=== PATIENT | male | born 1935 | race Caucasian/White ===

== ENCOUNTER 2017-04-26 13:08 | Inpatient (IN) | payer MEDICARE ==
[~2017-04-26] VITALS: Ht 179 cm; Wt 78.0 kg
--- NOTE | ~2017-04-26 | PR ---
[place], [place] PROGRESS NOTE NAME: LINO GUO UNIT #: [id number] ROOM: 315 DOCTOR: ASHLEY THAKUR MD BIRTHDATE: [birth year] DOS: 05/05/2017 CHIEF COMPLAINT: "Good morning, Sir." SUMMARY OF THE VISIT: The patient was interviewed as he reclined in a Susanna chair watching television and reading magazines. He engaged readily in conversation. He voiced no complaints. He was not attempting to leave the Susanna chair in any way. In fact, he looked content and comfortable. He voiced short simple responses, denying any issues and stated that he had breakfast, but could not remember what he had. MENTAL STATUS: He is alert and oriented to self. He is unclear if he realizes he is in the hospital, certainly not time. Mood does seem to be fairly euthymic. Affect appropriate. There is no gus or hypomania. There are no overt auditory or visual hallucinations. No delusions, no paranoia. Short term memory is exceedingly poor. PLAN: I will maintain his current psychotropic regimen. Maintain and monitor for the next 24 hours to make certain that the somnolence that was present 24 hours ago has truly dissipated which it does seem to have lessened considerably, returning then to [facility] when stable. ASHLEY THAKUR MD CM:PNTRANS [id number] ASHLEY THAKUR MD 05/05/17 1448 interface
--- NOTE | ~2017-04-26 | PR ---
[place], [place] PROGRESS NOTE NAME: LINO GUO UNIT #: [id number] ROOM: 315 DOCTOR: ASHLEY THAKUR MD BIRTHDATE: [birth year] DOS: 05/02/2017 INTERVAL NOTE. CHIEF COMPLAINT: "I am okay, thank you for asking." SUMMARY OF THE VISIT: The patient was interviewed as he sat in the dining area in a Susanna chair, finishing his breakfast. He engaged readily in conversation. Overall, his behavior has strongly trended towards euthymia and improvement. His episodes of yelling out and increased agitation have decreased in both frequency and intensity and the Susanna chair allowing him to utilize objects, puzzles and what not has been a very positive improvement allowing him to be calmer without the use of p.r.n. intervention. MENTAL STATUS: He is alert and oriented to person, not necessarily to place or time. Mood does seem to be strongly trending towards euthymia. Affect is much more appropriate. There are no symptoms of hypomania or gus. There are no overt auditory or visual hallucinations. No delusions, no paranoia. Short term memory has gaps. Otherwise, he is relatively intact. PLAN: I will maximize out the dose of Vraylar from 4.5 mg at bedtime to 6 mg at bedtime. Monitor for risk, benefit, engage in individual and hamilton milieu activity with the plan to return back to [facility] when psychiatrically stable. ASHLEY THAKUR MD CM:PNTRANS 6 ASHLEY THAKUR MD 05/02/1728 interface
--- NOTE | ~2017-04-26 | PR ---
[place], [place] PROGRESS NOTE NAME: LINO GUO UNIT #: [id number] ROOM: 315 DOCTOR: DHAVAL TREJO,MY BIRTHDATE: [birth year] DOS: 04/28/2017 CHIEF COMPLAINT: "Want to go to bathroom and I am going now." SUMMARY OF THE VISIT: The patient was interviewed in the dining area. Said "I want to go to bathroom now," but staff said he just returned from bathroom break. The patient complains of headache and said he has it since he got here. MENTAL STATUS: The patient is alert and oriented to self only. His responses tend to be short, simple and fragmented at times. Pleasantly confused and disoriented. There was no overt gus. There were no overt auditory or visual hallucinations, delusions, or paranoia. Short-term memory was extremely poor. PLAN: We will add Vraylar 1.5 mg at bedtime. Continue valproic acid, Depakote 500, Exelon and Namenda. We will continue to engage the patient in individual and hamilton milieu activity with the ultimate plan is to return back to [facility] when the patient is psychiatrically stable. SUKUMAR PUENTES DO ASHLEY THAKUR MD CM:PNTRANS [id number] SUKUMAR PUENTES DO 04/28/17 1311 interface
--- NOTE | ~2017-04-26 | PR ---
[place], [place] PROGRESS NOTE NAME: LINO GUO UNIT #: [id number] ROOM: 315 DOCTOR: ITALO SANDOVAL,MICHAEL BIRTHDATE: [birth year] DOS: 04/30/2017 CHIEF COMPLAINT: "I ate breakfast." SUBJECTIVE: The patient is an 82-year-old male admitted because of increasing agitation and significant mood lability. He was combative physically and verbally aggressive and he started on medicines and today, he is seen sitting in Susanna chair. He did engage in conversation, seemed pleasant, tried to have some eye contact, stating that he is feeling better. He could tell his address, his social security number and tried to answer questions. He is hard of hearing, but did try to engage. He has been calmer. As per nurse's report, he slept okay last night and had his breakfast. MENTAL STATUS EXAMINATION: The patient is oriented to self only. He is alert and did try to engage in conversation and did try to answer questions but at times his answers did not make much sense. He is calmer at present. No gus or hypomania noted. Also, no delusion or paranoia noted. PLAN: The patient is showing some improvement. We shall continue his medicines and increase Vraylar to 4.5 mg at bedtime and continue his care. Shall try and engage him in hamilton milieu as he is more stable. MICHAEL PUCKETT MD CM:PNTRANS [phone] MICHAEL PUCKETT MD 04/30/17 1544 interface
--- NOTE | ~2017-04-26 | PR ---
[place], [place] PROGRESS NOTE NAME: LINO GUO UNIT #: [id number] ROOM: 315 DOCTOR: ITALO SANDOVAL,MICHAEL BIRTHDATE: [birth year] DOS: CHIEF COMPLAINT: "Yes." SUBJECTIVE: The patient is seen this morning in dining area. He is sitting comfortably in Susanna chair, eyes closed. He did not engage in any meaningful conversation this morning. He was awake and alert yesterday afternoon and was very talkative. He has been needing help to feed him and on his personal care. He did not exhibit any aggressive behavior this morning. MENTAL STATUS EXAMINATION: The patient is drowsy, sleepy. He could not hold any conversation. He did open his eyes, looked at me and then dozed off. No gus or hypomania noted. PLAN: The patient needs further stabilization, so we shall continue with the same medicines and provide the personal care and shall try and engage him in hamilton milieu as he is more stable. MICHAEL PUCKETT MD CM:PNTRANS [phone] MICHAEL PUCKETT MD 05/08/171616 interface
--- NOTE | ~2017-04-26 | PR ---
[place], [place] PROGRESS NOTE NAME: LINO GUO UNIT #: [id number] ROOM: 315 DOCTOR: DHAVAL TREJO,MY BIRTHDATE: [birth year] DOS: 05/03/2017 ROOM #[id number] CHIEF COMPLAINT: "I've been here for 3 years." SUMMARY OF THE VISIT: The patient was interviewed in a Susanna chair in dining room area, having breakfast. Most of his answers today are "good or okay." Patient tends to look at the ground or away during the interview. According to staff, the patient only got 3 hours of sleep last night. MENTAL STATUS: Awake, alert and oriented to person. Affect is flat, but more appropriate, engaging in simple conversation appropriately, responses are short and simple, poor eye contact. No evidence of gus or hypomania noted. There are no overt evidence of delusion, paranoia or hallucination. PLAN: Continue Vraylar 6 mg at bedtime. We will continue to monitor for risks, benefits and engage the patient in individual and hamilton milieu activity with the ultimate plan is to return patient back to [facility] when the patient is psychiatrically stable. MY DO DHAVAL ASHLEY THAKUR MD CM:PNCHRIS [phone] SUKUMAR PUENTES DO 05/04/17 0853 interface
--- NOTE | ~2017-04-26 | PR ---
[place], [place] PROGRESS NOTE NAME: LINO GUO UNIT #: [id number] ROOM: 315 DOCTOR: ITALO SANDOVAL,MICHAEL BIRTHDATE: [birth year] DOS: CHIEF COMPLAINT: "I'm sleepy." SUBJECTIVE: The patient is seen this morning, sitting in a Susanna chair in dining area, resting after his breakfast, had short conversation, then he dozed off. Yesterday, he did engage in good conversation and did have a little play with a ball as well. He has been calmer. No more aggressive behavior noted. This has been appropriate. Yesterday, he had a visit from his son and he is happy about that. MENTAL STATUS EXAMINATION: The patient is sleepy, but is arousable, is sitting in Susanna chair. Did try to answer questions. At times, did not make any sense, still blunted affect. No gus or hypomania and no overt psychosis. PLAN: The patient is showing some improvement, but needs further stabilization, so we shall continue his care and shall continue his medicines and try and engage him in hamilton milieu as he is more stable. MICHAEL PUCKETT MD CM:NARENDRA [phone] MICHAEL PUCKETT MD 05/01/17 1338 interface
--- NOTE | ~2017-04-26 | WRIGHTHP ---
[place], [place] PATIENT HISTORY AND PHYSICAL EXAM [id number] UNIT #: [id number] ROOM: 315 DOCTOR: ASHLEY THAKUR MD BIRTHDATE: [birth year] DOS: 04/27/2017 CHIEF COMPLAINT: "I slept well, Thank you for asking." HISTORY OF PRESENT ILLNESS: This is an 82-year-old white male who is a resident of [facility] in [place], [place]. The patient was sent here to the [facility] in [facility] due to significant mood lability. The patient has been increasingly resistive to care and has been both verbally and physically combative. The patient also has been very restless and agitated and has been pacing nonstop. Attempts to redirect or to help him be more comfortable have been unsuccessful. The patient has struck out at other patients and staff and has been a significant risk of harm to himself and others due to this fact, he is admitted now to rule out further organic factors, to stabilize on medication, to engage in individual and hamilton milieu activity with the ultimate plan to return back to [facility]. PAST MEDICAL HISTORY: Remarkable for coronary artery disease, congestive heart failure, hyperlipidemia, hypertension, Parkinson's disease, diabetes, dementia. MENTAL STATUS: The patient is alert and oriented to self only. His responses tended to be short, simple and more often than not inappropriate. He denied any issues and was rather pleasant and cooperative with us. However, he was grossly confused and disoriented. His responses were also disjointed and fragmented and at times, he was not able to even form an entire sentence. There was no agitation or aggression. There was no overt hypomania or gus. There were no overt auditory or visual hallucinations. No delusions, no paranoia was noted. Short-term memory was exceedingly poor. DIAGNOSIS: Mood disorder, not otherwise specified, rule out major depression, recurrent, rule out intermittent explosive disorder. PLAN: I have maintained him on his Exelon and Namenda. His valproic acid level was found to be therapeutic at 76.8. I will maintain him on his Depakote 500 mg every 6 hours. We will continue to engage in individual and hamilton milieu activity with the ultimate plan to return back to [facility]. [place], [place] PATIENT HISTORY AND PHYSICAL EXAM NAME: LINO GUO UNIT #: [id number] ROOM: 315 DOCTOR: ASHLEY THAKUR MD BIRTHDATE: [birth year] ASHLEY THAKUR MD CM:HISPHYS:PATIENT HISTORY AND PHYSICAL EXAMINATION 9 5 ASHLEY THAKUR MD 04/27/17846 interface
--- NOTE | ~2017-04-26 | PR ---
[place], [place] PROGRESS NOTE NAME: LINO GUO UNIT #: [id number] ROOM: 315 DOCTOR: DHAVAL TREJO,MY BIRTHDATE: [birth year] DOS: 04/29/2017 CHIEF COMPLAINT: "I am ready." SUMMARY OF THE VISIT: The patient was interviewed in front of nurse station while he was in a Susanna chair. Denied pain or discomfort. The patient slept well and got 5 hours per staff. MENTAL STATUS: The patient is alert and oriented to self only. His responses are rather simple and short. Pleasantly confused and disoriented. There was no overt hypomania or gus. There were no overt auditory or visual hallucinations, delusions or paranoia. Short-term memory was extremely poor. PLAN: We will increase Vraylar from 1.5 mg to 3 mg at bedtime. Continue valproic acid (its level on April was 76.8) and Namenda. We will continue to engage the patient in individual and group activity. Plan is to be discharged back to [facility] when the patient is psychiatrically stable. MY DHAVAL, DO ASHLEY THAKUR MD CM:PNTRANS [phone] SUKUMAR PUENTES DO 04/29/17 1322 interface
--- NOTE | ~2017-04-26 | PR ---
[place], [place] PROGRESS NOTE NAME: LINO GUO UNIT #: [id number] ROOM: 315 DOCTOR: DHAVAL TREJO,MY BIRTHDATE: [birth year] DOS: 05/06/2017 CHIEF COMPLAINT: "Thank you lori." SUMMARY OF THE VISIT: The patient was interviewed in dining area where he rested in a Susanna chair. He readily and pleasantly engaged in a simple conversation, most of his answers were short and simple. According to staff, the patient periodically yells out for Lizy still. No aggression or agitation noted overnight. MENTAL STATUS: He is alert and oriented to self, but not time, pleasantly confused. Mood appears euthymic with appropriate affect. There is no gus or hypomania noted. There are no overt auditory or visual hallucinations, delusions or paranoia. Short-term memory is extremely poor. PLAN: Continue current psych medication. We will obtain valproic acid level on 05/07/2017. We will continue to engage the patient in individual and hamilton milieu with ultimate plan is to discharge the patient to [facility] when he is psychiatrically stable. MY DHAVAL, DO ASHLEY THAKUR MD CM:PNTRANS [phone] SUKUMAR PUENTES DO 05/07/17 1235 interface
--- NOTE | ~2017-04-26 | PR ---
[place], [place] PROGRESS NOTE NAME: LINO GUO UNIT #: [id number] ROOM: 315 DOCTOR: DHAVAL TREJO,MY BIRTHDATE: [birth year] DOS: 05/04/2017 ROOM NUMBER: [id number]. CHIEF COMPLAINT: "Ya, I want it." SUMMARY OF THE VISIT: The patient was interviewed in dining area, as he sat in a Susanna chair, having his eyes closed most of the time. The patient briefly opened his eyes saying "Ya I want it." When asked if he would like to have breakfast, but then quickly fell back asleep. Staff tried to feed him without much success. According to staff, the patient woke up around 2:00 a.m. last night, yelling for Lizy. When staff approached him, he asked for breakfast and then asked "are you breaking up with me." MENTAL STATUS: Alert and oriented to person. Affect is flat. The patient appears somnolent today, engage in superficial conversation appropriately, but quickly fell back asleep. There is evidence of delusion and paranoia last night. No overt auditory or visual hallucination noted. Short term memory is poor. PLAN: Due to change in mentation, we will obtain stat Depakote level, currently on Depakote 500 mg t.i.d. We will continue Vraylar 6 mg at bedtime and Exelon 6 mg b.i.d. We will also continue Namenda 10 mg b.i.d. We will continue to engage the patient in individual and hamilton milieu activity with the ultimate plan to [facility] to [facility] when the patient is psychiatrically stable. MY PUENTES, DO ASHLEY THAKUR MD CM:PNTRANS [phone] MY PUENTES DO 05/05/17 0248 interface
--- NOTE | ~2017-04-26 | PR ---
[place], [place] PROGRESS NOTE NAME: LINO GUO UNIT #: [id number] ROOM: 315 DOCTOR: ITALO SANDOVAL,MICHAEL BIRTHDATE: [birth year] DOS: CHIEF COMPLAINT: "Okay." SUBJECTIVE: The patient is seen today, sitting in Susanna chair. He is very drowsy, though did open his eyes and looked at me, then dozed off. He could not hold any conversation. He is needing more personal care, needing help to feed him as well. MENTAL STATUS EXAMINATION: The patient is drowsy, could not hold any conversation. He is calmer at present. No gus or hypomania noted. No overt psychosis. PLAN: The patient needs personal care and that we shall take care of. His Depakote level this morning is 51.1, which is therapeutic. We shall continue with the same dose at present and continue his care. MICHAEL PUCKETT MD CM:PNTRANS [phone] MICHAEL PUCKETT MD 05/07/17 1557 interface
--- NOTE | ~2017-04-26 | DS ---
[place], [place] DISCHARGE SUMMARY [id number] UN[facility] #: [id number] ROOM: 315 DOCTOR: ASHLEY THAKUR MD BIRTHDATE: [birth year] DOS: 05/09/2017 CHIEF COMPLAINT: "I slept well, thank you for asking." HISTORY OF PRESENT ILLNESS: This is an 82-year-old white male who is a resident of [facility] in [place], [place]. The patient was sent here to the [facility] at [facility] due to a significant change in mental status with significant mood lability. He has been increasingly resistive to care and has been both verbally and physically combative. Attempts to redirect him have been met with him escalating. He also tends to pace nonstop and again attempts to redirect have been unsuccessful. He has struck out at other patients and staff and is a significant risk of harm to self and others. He is admitted to rule out organic factors and to stabilize on medication. PAST MEDICAL HISTORY: Remarkable for coronary artery disease, congestive heart failure, hyperlipidemia, hypertension, Parkinson's disease, diabetes and dementia. SUMMARY OF HOSPITAL COURSE: The patient was admitted to the unit where he was maintained on Exelon 6 mg b.i.d. and his Namenda XR was switched to Namenda 10 mg b.i.d. His valproic acid level was therapeutic upon admission at 76.8, so he was maintained on his Depakote 500 mg 4 times a day. This was later lowered when the blood level elevated. Because of significant mood lability and agitation, the patient was started on Vraylar 1.5 mg at bedtime. The dose was gradually increased to its maximum dose of 6 mg at bedtime. This was well tolerated. He had exhibited no extrapyramidal symptoms, tardive dyskinesia, extrapyramidal symptoms or other side effects. The patient had improved sufficiently that he was able to be discharged back to [place] where I will follow him upon his return there. MENTAL STATUS AT DISCHARGE: The patient is alert and oriented to self only. He is bright, pleasant and cooperative. There was no symptom suggestive of gus or hypomania. There were no auditory or visual hallucinations. He did process slowly and his responses tended to be short and simple. Short-term memory was poor. FINAL DIAGNOSES: Intermittent explosive disorder, mood disorder, not otherwise specified and Alzheimer's dementia. PLAN: He will be discharged back to [place]. I will follow him upon his return. [place], [place] DISCHARGE SUMMARY NAME: LINO GUO UNIT #: [id number] ROOM: [facility] DOCTOR: ASHLEY THAKUR MD BIRTHDATE: [birth year] ASHLEY THAKUR MD CM:DISCHARG [phone] ASHLEY THAKUR MD 05/09/17 1047 interface
[2017-04-26] MEDS ORDERED: ASPIRIN CHEWABL81 MG PO (14:33)
[2017-04-26] MEDS ORDERED: LIPITOR40 MG PO (14:34)
[2017-04-26] MEDS ORDERED: JANUMET XR 50-1 EACH PO (14:36)
[2017-04-26] MEDS ORDERED: SINEMET 25-1001 EACH PO (14:36)
[2017-04-26] MEDS ORDERED: METFORMIN500 MG PO (14:37)
[2017-04-26] MEDS ORDERED: TAPAZOLE5 MG PO (14:38)
[2017-04-26] MEDS ORDERED: TOPROL XL25 MG PO (14:39)
[2017-04-26] MEDS ORDERED: RIVASTIGMINE TAR6 M1 PO (14:40)
[2017-04-26] MEDS ORDERED: LASIX20 MG PO (14:41)
[2017-04-26] MEDS ORDERED: NAMENDA-28 PO (14:43)
[2017-04-26] MEDS ORDERED: POTASSIUM CHLO10 ME4 PO (14:43)
[2017-04-26] MEDS ORDERED: PLAVIX75 M1 PO (14:45)
[2017-04-26] MEDS ORDERED: Depakote Sprin125 MG PO (14:46)
[2017-04-26 16:43] VITALS: BP 122/63
[2017-04-26 20:00] VITALS: BP 144/78
[2017-04-27 07:31] VITALS: BP 141/62
[2017-04-27 07:42] LABS: BASO # 0.1 10*3/uL (0.0-0.1); BASO % 0.6 % (0.0-1.0); EOS # 0.2 10*3/uL (0.0-0.4); HEMATOCRIT 36.5 % (42.0-52.0); HEMOGLOBIN 11.6 g/dl (14.0-18.0); LYMPH # 2.8 10*3/uL (1.3-4.4); LYMPH % 27.8 % (27.0-41.0); MEAN CORPUSCULAR HGB 28.9 pg (27.0-31.0); MEAN CORPUSCULAR HGB CONC 31.8 g/dl (33.0-37.0); MEAN PLATELET VOLUME 11.1 fl (9.6-12.3); MONO # 0.8 10*3/uL (0.1-1.0); MONO % 8.3 % (3.0-9.0); NEUT # 5.9 10*3/uL (2.3-7.9); NEUT % 58.9 % (47.0-73.0); PLATELET COUNT AUTOMATED 251 10*3/uL (130-400); RED BLOOD COUNT 4.01 10*6/uL (4.50-5.90); RED CELL DISTRI WIDTH 14.9 % (0-14.5)
[2017-04-27 07:57] LABS: VALPROIC ACID (DEPAKENE) 76.8 ug/ml (50-100)
[2017-04-27 08:04] LABS: THYROID STIM HORMONE (HS) 0.375 uIU/ml (0.358-4.75)
[2017-04-27 20:00] VITALS: BP 147/81
[2017-04-28 08:54] VITALS: BP 100/72; BP 128/74
[2017-04-28 21:40] VITALS: BP 123/62
[2017-04-29 07:42] VITALS: BP 150/82
[2017-04-29 16:46] LABS: BILIRUBIN NEGATIVE (NEGATIVE); BLOOD NEGATIVE (NEGATIVE); CLARITY CLEAR (CLEAR); COLOR YELLOW (YELLOW); GLUCOSE NEGATIVE (NEGATIVE); KETONE NEGATIVE (NEGATIVE); LEUKO ESTERASE NEGATIVE (NEGATIVE); NITRITE NEGATIVE (NEGATIVE); SPECIFIC GRAVITY 1.015 (1.005-1.030); UROBILINOGEN 0.2 E.U./dl (0.2-1.0)
[2017-04-29 17:06] LABS: RBC 0-2 rbc/hpf (0-2); WBC 0-2 wbc/hpf (0-5)
[2017-04-29 20:00] VITALS: BP 143/62
[2017-04-30 08:27] VITALS: BP 108/61
[2017-04-30 20:00] VITALS: BP 135/76
[2017-05-01 07:49] VITALS: BP 123/68
[2017-05-01 20:00] VITALS: BP 117/69
[2017-05-02 07:40] VITALS: BP 124/74
[2017-05-02 21:34] VITALS: BP 101/62
[2017-05-03 08:57] VITALS: BP 112/57
[2017-05-03 20:00] VITALS: BP 140/57
[2017-05-04 08:00] VITALS: BP 124/65
[2017-05-04 20:00] VITALS: BP 154/67
[2017-05-05 08:57] VITALS: BP 128/53
[2017-05-05 20:00] VITALS: BP 131/57
[2017-05-06 07:56] VITALS: BP 123/62
[2017-05-06 20:00] VITALS: BP 122/53
[2017-05-07 08:04] VITALS: BP 118/78
[2017-05-07 19:56] VITALS: BP 124/89
[2017-05-08 07:44] LABS: BASO # 0.1 10*3/uL (0.0-0.1); BASO % 0.6 % (0.0-1.0); EOS # 0.2 10*3/uL (0.0-0.4); HEMATOCRIT 35.1 % (42.0-52.0); HEMOGLOBIN 11.3 g/dl (14.0-18.0); LYMPH # 2.7 10*3/uL (1.3-4.4); MEAN CELL VOLUME 89.8 fl (80.0-94.0); MEAN CORPUSCULAR HGB 28.9 pg (27.0-31.0); MEAN CORPUSCULAR HGB CONC 32.2 g/dl (33.0-37.0); MEAN PLATELET VOLUME 11.5 fl (9.6-12.3); MONO # 0.9 10*3/uL (0.1-1.0); MONO % 10.1 % (3.0-9.0); NEUT # 4.6 10*3/uL (2.3-7.9); NEUT % 54.1 % (47.0-73.0); PLATELET COUNT AUTOMATED 209 10*3/uL (130-400); RED BLOOD COUNT 3.91 10*6/uL (4.50-5.90); RED CELL DISTRI WIDTH 15.7 % (0-14.5); WHITE BLOOD COUNT 8.5 10*3/uL (4.8-10.8)
[2017-05-08 07:50] VITALS: BP 122/75
[2017-05-08 07:51] LABS: BUN 25 mg/dl (7-24); CHLORIDE 103 mmol/L (98-107); SODIUM 141 mmol/L (136-145)
[2017-05-08 07:53] LABS: CREATININE 1.07 mg/dL (0.70-1.30)
[2017-05-08 20:14] VITALS: BP 140/83
[2017-05-09 07:55] VITALS: BP 127/72
[2017-05-09] MEDS ORDERED: DIVALPROEX SOD125 M1 PO (09:57)
[2017-05-09] MEDS ORDERED: MEMANTINE HCL10 MG PO (09:57)
[2017-05-09] MEDS ORDERED: VRAYLAR6 MG PO (09:57)
[2017-05-09] MEDS ORDERED: RIVASTIGMINE TAR3 M1 PO (09:57)
== END 2017-05-09 14:13 | DRG 883 ==
LOC: 3N 13:08
PROVIDERS: Internal Medicine; ADMIT Psychiatry & Neurology Psychiatry
DX: F63.81 Intermittent explosive disorder (principal); E11.8 Type 2 diabetes mellitus with unspecified complications; G20 Parkinson's disease; F23 Brief psychotic disorder; F02.81 Dementia in other diseases classified elsewhere, unspecified severity, with behavioral disturbance; G30.9 Alzheimer's disease, unspecified; I50.9 Heart failure, unspecified; E78.5 Hyperlipidemia, unspecified; I25.10 Atherosclerotic heart disease of native coronary artery without angina pectoris; I11.0 Hypertensive heart disease with heart failure; E05.90 Thyrotoxicosis, unspecified without thyrotoxic crisis or storm; F39 Unspecified mood [affective] disorder; Z96.659 Presence of unspecified artificial knee joint; Z79.82 Long term (current) use of aspirin; Z79.84 Long term (current) use of oral hypoglycemic drugs; Z79.899 Other long term (current) drug therapy